=== PATIENT | female | born 1995 | race Two or more races ===

== ENCOUNTER 2018-03-21 21:29 | Inpatient (IN) | payer BC ==
[2018-03-22] MEDS ORDERED: Sodium Chloride 0.9% 2.5 ML Syringe FLUSH PRN (05:53)
[2018-03-22] MEDS ORDERED: Water For Irrigation,Sterile 1,000 ML Container IRR PRN (05:53)
[2018-03-22] MEDS ORDERED: Carboprost Tromethamine 250 MCG/1 ML Amp IM PRN (05:53)
[2018-03-22] MEDS ORDERED: Nalbuphine 10 MG/1 ML Vial IVPUSH PRN (05:53)
[2018-03-22] MEDS ORDERED: Lidocaine 1% 50 ML MDV INJECT PRN (05:53)
[2018-03-22] MEDS ORDERED: Tranexamic Acid 1,000 MG in Sodium Chloride 0.9% 100 ML IV PRN (05:53)
[2018-03-22] MEDS ORDERED: Methylergonovine 0.2 MG/1 ML Amp IM PRN (05:53)
[2018-03-22] MEDS ORDERED: Misoprostol 200 MCG Tab PO PRN (05:53)
[2018-03-22] MEDS ORDERED: Sodium Chloride 0.9% 10 ML Syringe FLUSH PRN (05:53)
[2018-03-22] MEDS ORDERED: Terbutaline 1 MG/ML SDV SUBCUT PRN (05:56)
[2018-03-22] MEDS ORDERED: Oxytocin/0.9 % Sodium Chloride 30 UNIT/500 ML BAG IV SCH ×2 (06:00)
[2018-03-22] MEDS ORDERED: Misoprostol 25 MCG (1/4 of 100 MCG) Tab VAG PRN (06:30)
[2018-03-22] MEDS: Misoprostol 25 MCG (1/4 of 100 MCG) Tab VAG PRN ×2 (08:22→12:45)
[2018-03-22] MEDS ORDERED: Misoprostol 25 MCG (1/4 of 100 MCG) Tab PO ONE ×2 (08:23→12:38)
[2018-03-22] MEDS: Labetalol 100 MG Tab PO SCH ×2 (08:58→20:55)
[2018-03-22] MEDS: Butorphanol 1 MG/ML SDV IVPUSH PRN ×2 (19:35→21:25)
[2018-03-22] MEDS: Lactated Ringers 1,000 ML IV SCH (20:23)
[2018-03-23] MEDS: Butorphanol 1 MG/ML SDV IVPUSH PRN (00:49)
--- NOTE | 2018-03-23 04:09 | PCM.PREANE ---
Preanesthetic Assessment - Anesthesia/Transfusion/Family Hx Anesthesia History: Prior Anesthesia Without Reaction Family History of Anesthesia Reaction: No Transfusion History: No Prior Transfusion(s) - Review of Systems General: No Symptoms Pulmonary: No Symptoms Cardiovascular: No Symptoms Gastrointestinal: No Symptoms Neurological: No Symptoms Other: Reports: None - Physical Assessment Pulse: 75 Blood Pressure: 128/66 Vital Signs: Last Vital Signs Temp Pulse 75 03/22/18 20:55 Resp BP 128/66 03/22/18 20:55 Pulse Ox Height: 5 ft 8 in Weight: 146.057 kg ASA Class: 3 Mental Status: Alert & Oriented x3 Airway Class: Mallampati = 2 Dentition: Reports: Normal Dentition Thyro-Mental Finger Breadths: 3 Mouth Opening Finger Breadths: 3 ROM/Head Extension: Full Lungs: Clear to Auscultation, Normal Respiratory Effort Cardiovascular: Regular Rate, Regular Rhythm - Lab Values: Laboratory Last Values WBC 10.57 K/uL (4.0-11.0) 03/22/18 07:20 RBC 4.08 M/uL (4.30-5.90) L 03/22/18 07:20 Hgb 11.7 g/dL (12.0-16.0) L 03/22/18 07:20 Hct 34.4 % (36.0-46.0) L 03/22/18 07:20 MCV 84.3 fL (80.0-98.0) 03/22/18 07:20 MCH 28.7 pg (27.0-32.0) 03/22/18 07:20 MCHC 34.0 g/dL (31.0-37.0) 03/22/18 07:20 RDW Std Deviation 43.0 fl (28.0-62.0) 03/22/18 07:20 RDW Coeff of Danielle 14 % (11.0-15.0) 03/22/18 07:20 Plt Count 209 K/uL (150-400) 03/22/18 07:20 MPV 10.10 fL (7.40-12.00) 03/22/18 07:20 Nucleated RBC % 0.0 /100WBC 03/22/18 07:20 Nucleated RBCs # 0 K/uL 03/22/18 07:20 Blood Type O POSITIVE 03/22/18 07:20 Antibody Screen NEGATIVE 03/22/18 07:20 - Allergies Allergies/Adverse Reactions: Allergies Allergy/AdvReac Type Severity Reaction Status Date / Time promethazine HCl Allergy seizure Verified 06/30/16 03:07 [From Phenergan] like - Acknowledgements Anesthesia Type Planned: General Anesthesia Pt an Appropriate Candidate for the Planned Anesthesia: Yes Alternatives and Risks of Anesthesia Discussed w Pt/Guardian: Yes Pt/Guardian Understands and Agrees with Anesthesia Plan: Yes PreAnesthesia Questionnaire HEENT History: Reports: Impaired Vision Cardiovascular History: Reports: Hypertension, Other (See Below) (Hx of SVT with cardiac ablation) Respiratory History: Reports: None Gastrointestinal History: Reports: GERD Genitourinary History: Reports: None 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: : 1 Para: 0 LMP (Approximate): Other OB/BYN History: chemical pregnancies Musculoskeletal History: Reports: None Neurological History: Reports: None Psychiatric History: Reports: Anxiety, Depression Endocrine/Metabolic History: Reports: Obesity/BMI 30+ (Morbid obesity) Hematologic History: Reports: None Immunologic History: Reports: None Oncologic (Cancer) History: Reports: None Dermatologic History: Reports: None - Infectious Disease History Infectious Disease History: Reports: None - Past Surgical History HEENT Surgical History: Reports: Adenoidectomy, Tonsillectomy Cardiovascular Surgical History: Reports: Cardiac Ablation - SUBSTANCE USE Smoking Status *Q: Never Smoker Recreational Drug Use History: No - HOME MEDS Home Medications: Home Meds Hydrochlorothiazide 1 tab PO DAILY 06/30/16 [History] Hyoscyamine [Hyomax-SL] 0.125 mg SL Q6H PRN #15 tab.sl 06/30/16 [Rx] Ondansetron [Zofran ODT] 4 mg PO Q6H PRN #12 tab.dis 06/30/16 [Rx] - CURRENT (IN HOUSE) MEDS Current Meds: Current Medications Butorphanol Tartrate (Stadol) 1 mg IVPUSH Q1H PRN PRN Reason: Pain Last Admin: 03/23/18 00:49 Dose: 1 mg Carboprost Tromethamine (Hemabate Ds) 250 mcg IM ASDIRECTED PRN PRN Reason: Post Hemorrhage Lactated Ringer's (Ringers, Lactated) 1,000 mls @ 150 mls/hr IV ASDIRECTED KING Last Admin: 03/22/18 20:23 Dose: 150 mls/hr Oxytocin/Sodium Chloride (Oxytocin 30 Unit/500 Ml-Ns) 30 unit in 500 mls @ 999 mls/hr IV TITRATE [facility] Tranexamic Acid 1,000 mg/ (Sodium Chloride) 110 mls @ 660 mls/hr IV ONETIME PRN PRN Reason: Bleeding Oxytocin/Sodium Chloride (Oxytocin 30 Unit/500 Ml-Ns) 30 unit in 500 mls @ 2 mls/hr IV TITRATE [facility]; Protocol Last Titration: 03/23/18 02:19 Dose: 30 munits/min, 30 mls/hr Labetalol HCl (Normodyne) 200 mg PO BID [facility] Last Admin: 03/22/18 20:55 Dose: 200 mg Lidocaine HCl (Xylocaine 1%) 50 ml INJECT ONETIME PRN PRN Reason: Laceration repair Methylergonovine Maleate (Methergine) 0.2 mg IM ASDIRECTED PRN PRN Reason: Post Hemorrhage Misoprostol (Cytotec) 200 mcg PO ONETIME PRN PRN Reason: Post Hemorrhage Misoprostol (Cytotec) 25 mcg VAG Q4H PRN PRN Reason: Cervical Ripening Misoprostol (Cytotec) 25 mcg VAG Q4H PRN PRN Reason: Cervical Ripening Last Admin: 03/22/18 12:45 Dose: 25 mcg Nalbuphine HCl (Nubain) 10 mg IVPUSH Q1H PRN PRN Reason: Pain (severe 7-10) Sodium Chloride (Saline Flush) 10 ml FLUSH ASDIRECTED PRN PRN Reason: Keep Vein Open Sodium Chloride (Saline Flush) 2.5 ml FLUSH ASDIRECTED PRN PRN Reason: Keep Vein Open Sterile Water (Sterile Water For Irrigation) 1,000 ml IRR ASDIRECTED PRN PRN Reason: delivery Terbutaline Sulfate (Brethine) 0.25 mg SUBCUT ASDIRECTED PRN PRN Reason: Tacysystole Discontinued Medications Misoprostol (Cytotec) 25 mcg PO ONETIME ONE Stop: 03/22/18 08:24 Last Admin: 03/22/18 08:29 Dose: 25 mcg Misoprostol (Cytotec) 25 mcg PO ONETIME ONE Stop: 03/22/18 12:39 Last Admin: 03/22/18 12:45 Dose: 25 mcg
[2018-03-23] MEDS: Lactated Ringers 1,000 ML IV SCH ×2 (04:22→06:16)
[2018-03-23] MEDS ORDERED: Bupivacaine 0.5% 10 ML SDV ONE (08:20)
[2018-03-23] MEDS ORDERED: Ondansetron 4 MG/2 ML SDV IVPUSH PRN (10:12)
[2018-03-23] MEDS: Labetalol 100 MG Tab PO SCH ×2 (10:16→20:39)
[2018-03-23] MEDS ORDERED: Misoprostol 200 MCG Tab PO PRN (10:41)
[2018-03-23] MEDS ORDERED: Sodium Chloride 0.9% 2.5 ML Syringe FLUSH PRN (10:41)
[2018-03-23] MEDS ORDERED: Tranexamic Acid 1,000 MG in Sodium Chloride 0.9% 100 ML IV PRN (10:41)
[2018-03-23] MEDS ORDERED: Carboprost Tromethamine 250 MCG/1 ML Amp IM PRN (10:41)
[2018-03-23] MEDS ORDERED: Lidocaine 1% 50 ML MDV INJECT PRN (10:41)
[2018-03-23] MEDS ORDERED: Water For Irrigation,Sterile 1,000 ML Container IRR PRN (10:41)
[2018-03-23] MEDS ORDERED: Sodium Chloride 0.9% 10 ML Syringe FLUSH PRN (10:41)
[2018-03-23] MEDS ORDERED: Nalbuphine 10 MG/1 ML Vial IVPUSH PRN (10:41)
[2018-03-23] MEDS ORDERED: Butorphanol 1 MG/ML SDV IVPUSH PRN (10:41)
[2018-03-23] MEDS ORDERED: Methylergonovine 0.2 MG/1 ML Amp IM PRN (10:41)
[2018-03-23] MEDS ORDERED: Lactated Ringers 1,000 ML IV SCH (10:45)
[2018-03-23] MEDS ORDERED: Oxytocin/0.9 % Sodium Chloride 30 UNIT/500 ML BAG IV SCH (10:45)
--- NOTE | 2018-03-23 13:42 | PCM.SN ---
- Free Text/Narrative Note: Pt epidural infusion refilled with 100 ml 0.125% bupivacaine with 200 mcg fentanyl added. Pt states is comfortable with epidural as programmed and is dilated to about 5 cm. Rate/bolus continued as prior.
[2018-03-23] MEDS ORDERED: Witch Hazel Medicated Pads 40/Jar TOP PRN (15:10)
[2018-03-23] MEDS ORDERED: Benzocaine/Menthol 20%-0.5% Spray 78 GM Cannister TOP PRN (15:10)
[2018-03-23] MEDS ORDERED: Ibuprofen 400 MG Tab PO PRN (15:10)
[2018-03-23] MEDS ORDERED: Bisacodyl 10 MG Supp RECTAL PRN (15:10)
[2018-03-23] MEDS ORDERED: Docusate Sodium 100 MG Cap PO PRN (15:10)
[2018-03-23] MEDS ORDERED: Acetaminophen 500 MG Tab PO PRN ×2 (15:10)
[2018-03-23] MEDS ORDERED: Lanolin 100% Cream 7 GM Tube TOP PRN (15:10)
[2018-03-23] MEDS ORDERED: oxyCODONE 5 MG Tab PO PRN (15:10)
--- NOTE | 2018-03-23 15:18 | PCM.DEL ---
L & D Note - General Info Date of Service: 03/23/18 - Delivery Note Labor: Induced by Oxytocin Cervical Ripening Method: Prostaglandin E2 Delivery Outcome: Livebirth Infant Delivery Method: Spontaneous Vaginal Delivery-Single Infant Delivery Mode: Spontaneous Presentation: Left Occiput Anterior (CONNOR) Nuchal Cord: None Prep: Other Anesthesia Type: Epidural Amniotic Fluid Description: Clear Episiotomy Type: None Laceration: 1st Degree, Labial Suture type: Vicryl Suture size: 3-0 Placenta: Intact, Spontaneous Cord: 3 Vessels Estimated Blood Loss: 100 Resuscitation Needed: Yes : Suctioned, Stimulated Score 1 min: 1 Score 5 min: 4 Score 10 min: 8 Induction Criteria - Cunningham Score Cunningham Score Dilation: Closed Cunningham Score Effacement: 0-30% Cunningham Score Infant's Station: -3 Cunningham Score Consistency: Firm Cunningham Score Cervix Position: Posterior Cunningham Score Total: 0 Cunningham Score Presenting Part: Reports: Cephalic - Induction Gestational Age >/= 39 wks: Yes Estimated Pelvis: Reports: Adequate Reassuring Monitoring Strip: Yes Absence of Tachy Systole: Yes - General Info Date of Service: 03/23/18 - Patient Data Vitals - Most Recent: Last Vital Signs Temp Pulse 113 H 03/23/18 10:16 Resp BP 142/88 H 03/23/18 10:16 Pulse Ox Weight - Most Recent: 322 lb Med Orders - Current: Current Medications Acetaminophen (Tylenol Extra Strength) 500 mg PO Q4H PRN PRN Reason: Pain Acetaminophen (Tylenol Extra Strength) 1,000 mg PO Q4H PRN PRN Reason: Pain Benzocaine/Menthol (Dermoplast Pain Relief 20%-0.5% [place]) 78 gm TOP ASDIRECTED PRN PRN Reason: Perineal Comfort Measure Bisacodyl (Dulcolax) 10 mg RECTAL ONETIME PRN PRN Reason: Constipation Docusate Sodium (Colace) 100 mg PO BID PRN PRN Reason: Constipation Emollient Ointment (Lansinoh Hpa) 0 gm TOP ASDIRECTED PRN PRN Reason: Sore Nipples Ibuprofen (Motrin) 400 mg PO Q4H PRN PRN Reason: Pain Ibuprofen (Motrin) 800 mg PO Q6H PRN PRN Reason: Pain Labetalol HCl (Normodyne) 200 mg PO BID [facility] Last Admin: 03/23/18 10:16 Dose: 200 mg Oxycodone HCl (Oxycodone) 5 mg PO Q2H PRN PRN Reason: Pain Witch Hiral (Tucks) 1 pad TOP ASDIRECTED PRN PRN Reason: comfort care Discontinued Medications Bupivacaine HCl (Sensorcaine-Mpf 0.5%) Confirm Administered Dose 10 ml .ROUTE .STK-MED ONE Stop: 03/23/18 08:21 Butorphanol Tartrate (Stadol) 1 mg IVPUSH Q1H PRN PRN Reason: Pain Last Admin: 03/23/18 00:49 Dose: 1 mg Carboprost Tromethamine (Hemabate Ds) 250 mcg IM ASDIRECTED PRN PRN Reason: Post Hemorrhage Lactated Ringer's (Ringers, Lactated) 1,000 mls @ 150 mls/hr IV ASDIRECTED KING Last Admin: 03/23/18 06:16 Dose: 150 mls/hr Oxytocin/Sodium Chloride (Oxytocin 30 Unit/500 Ml-Ns) 30 unit in 500 mls @ 999 mls/hr IV TITRATE [facility] Tranexamic Acid 1,000 mg/ (Sodium Chloride) 110 mls @ 660 mls/hr IV ONETIME PRN PRN Reason: Bleeding Oxytocin/Sodium Chloride (Oxytocin 30 Unit/500 Ml-Ns) 30 unit in 500 mls @ 2 mls/hr IV TITRATE [facility]; Protocol Last Titration: 03/23/18 09:03 Dose: 30 munits/min, 30 mls/hr Fentanyl/Bupivacaine HCl ([id number]-Ckfix-Nr 2 Mcg/Ml-0.125%) Confirm Administered Dose 100 mls @ as directed EP .STK-MED ONE Stop: 03/23/18 04:13 Fentanyl/Bupivacaine HCl (Jjlbncqf-Ptwhk-Xt 2 Mcg/Ml-0.125%) Confirm Administered Dose 100 mls @ as directed EP .STK-MED ONE Stop: 03/23/18 11:41 Lidocaine HCl (Xylocaine 1%) 50 ml INJECT ONETIME PRN PRN Reason: Laceration repair Methylergonovine Maleate (Methergine) 0.2 mg IM ASDIRECTED PRN PRN Reason: Post Hemorrhage Misoprostol (Cytotec) 200 mcg PO ONETIME PRN PRN Reason: Post Hemorrhage Misoprostol (Cytotec) 25 mcg VAG Q4H PRN PRN Reason: Cervical Ripening Misoprostol (Cytotec) 25 mcg VAG Q4H PRN PRN Reason: Cervical Ripening Last Admin: 03/22/18 12:45 Dose: 25 mcg Misoprostol (Cytotec) 25 mcg PO ONETIME ONE Stop: 03/22/18 08:24 Last Admin: 03/22/18 08:29 Dose: 25 mcg Misoprostol (Cytotec) 25 mcg PO ONETIME ONE Stop: 03/22/18 12:39 Last Admin: 03/22/18 12:45 Dose: 25 mcg Nalbuphine HCl (Nubain) 10 mg IVPUSH Q1H PRN PRN Reason: Pain (severe 7-10) Sodium Chloride (Saline Flush) 10 ml FLUSH ASDIRECTED PRN PRN Reason: Keep Vein Open Sodium Chloride (Saline Flush) 2.5 ml FLUSH ASDIRECTED PRN PRN Reason: Keep Vein Open Sterile Water (Sterile Water For Irrigation) 1,000 ml IRR ASDIRECTED PRN PRN Reason: delivery Terbutaline Sulfate (Brethine) 0.25 mg SUBCUT ASDIRECTED PRN PRN Reason: Tacysystole - Problem List & Annotations (1) Vaginal delivery SNOMED Code(s): 968536639 Code(s): O80 - ENCOUNTER FOR FULL-TERM UNCOMPLICATED DELIVERY Status: Acute Current Visit: Yes - Problem List Review Problem List Initiated/Reviewed/Updated: Yes - My Orders Last 24 Hours: My Active Orders 03/23/18 10:41 Heart Tones [RC] CONTINUOUS Non Stress Test [RC] PER UNIT ROUTINE May Shower [RC] ASDIRECTED Notify Provider [RC] PRN Up ad Jeanette [RC] ASDIRECTED Vaginal Exam [RC] PRN Vital Signs [RC] PER UNIT ROUTINE 03/23/18 14:41 BLOOD GAS ARTERIAL UMBILICAL [BG] Routine BLOOD GAS VENOUS UMBILICAL [BG] Routine 03/23/18 15:10 Patient Status [ADT] Routine May Shower [RC] ASDIRECTED Up ad Jeanette [RC] ASDIRECTED Vital Signs [RC] PER UNIT ROUTINE Acetaminophen [Tylenol Extra Strength] 1,000 mg PO Q4H PRN Acetaminophen [Tylenol Extra Strength] 500 mg PO Q4H PRN Benzocaine/Menthol [Dermoplast Pain Relief 20%-0.5% [place]] 78 gm TOP ASDIRECTED PRN Bisacodyl [Dulcolax] 10 mg RECTAL ONETIME PRN Docusate Sodium [Colace] 100 mg PO BID PRN Ibuprofen [Motrin] 400 mg PO Q4H PRN Ibuprofen [Motrin] 800 mg PO Q6H PRN Lanolin [Lansinoh HPA] See Dose Instructions TOP ASDIRECTED PRN Witch Hiral [Tucks] 1 pad TOP ASDIRECTED PRN oxyCODONE 5 mg PO Q2H PRN Assess Lochia [WOMSER] Per Unit Routine Assess Uterine Involution [WOMSER] Per Unit Routine Breast Pump [WOMSER] Per Unit Routine Peripheral IV Discontinue [OM.PC] Routine Resuscitation Status Routine 03/23/18 15:11 Perineal Care [OM.PC] Per Unit Routine 03/23/18 Dinner Regular Diet [DIET] 03/24/18 05:11 HEMOGLOBIN/HEMATOCRIT,HH [HEME] Timed - Assessment Assessment:: Primp at 39.3 weeks s/p vaginal delivery following IOL for CHTN
[2018-03-23] MEDS: Ibuprofen 800 MG Tab PO PRN (17:07)
--- NOTE | 2018-03-24 01:06 | OR ---
SURGEON: Anuradha Sweeney MD DATE OF PROCEDURE: 03/23/2018 PREOPERATIVE DIAGNOSES: 1. Intrauterine at 39 weeks and 3 days' gestation. 2. Chronic hypertension. 3. Polyhydramnios. POSTOPERATIVE DIAGNOSES: 1. Intrauterine at 39 weeks and 3 days' gestation. 2. Chronic hypertension. 3. Polyhydramnios. 4. Delivered. PROCEDURE: Induction of labor, spontaneous vaginal delivery, and repair of perineal laceration. ANESTHESIA: Epidural. ESTIMATED BLOOD LOSS: 100 mL. COMPLICATIONS: None. DISPOSITION: Mother stable in Labor and Delivery Room. Baby stable to new born nursery. FINDINGS: Male infant, weight 4100 g, scores 1 and 4 at one and five minutes respectively and 8 at ten minutes. Grossly normal placenta with 3-vessel cord. First-degree laceration and labial lacerations. HISTORY AND DESCRIPTION OF DELIVERY: Tereza is a primigravida, who was admitted overnight on the 21 of March for induction of labor secondary to chronic hypertension which had been controlled on labetalol 200 mg b.i.d. and polyhydramnios with negative evaluations and reassuring surveillance. GBS status was negative. The patient's induction actually began around 8:00 a.m. on the 22 of March, and she received Cytotec 25 mcg both vaginal and orally which was repeated 4 hours later. After the second round of Cytotec, she started thomas every 1 to 3 minutes, she was uncomfortable and received Stadol at that stage. On vaginal examination, she 1, 60% effaced, station -3, a [employer] intracervical balloon was placed and Pitocin was commenced. The balloon was removed approximately 12 hours later, she was 5 cm, 90% effaced. Artificial rupture of membranes was performed and an IUPC was inserted. And she received and epidural Pitocin was titrated up to obtain adequate MUvs. She subsequently became fully dilated and commenced pushing. The heart tracing remained category 1 during the first stage and category 2 in the second stage. Blood pressures were normotensive. With pushing, she brought the head down to +4 station, and was set up for delivery, modified low dorsal lithotomy position. Pushing for approximately about 2 hours 30 minutes, she had a spontaneous vaginal delivery of a male in direct occipital posterior position, no nuchal cord with clear amniotic fluid at delivery. Anterior and posterior shoulders and the rest of the baby were delivered without difficulty. Terminal meconium was noted at delivery. The baby was floppy at delivery. The cord was quickly double clamped and cut and the was handed over to the nursery nurse, he was taken to the warmer, where further evaluation and resuscitation ensued. With delivery of the , oxytocin infusion was converted titration for active management of the third stage of labor. Cord blood and gas samples were obtained. Placenta was delivered by controlled cord traction, appeared to be complete and intact. Examination of the perineum revealed vaginal and labial lacerations which were repaired with 3-0 Polysorb. The lacerations were hemostatic post repair. Uterine massage was performed, uterus was found to be well contracted below the umbilicus. The patient tolerated the procedure well. Sponge, instrument, and needle counts were normal. The baby transitioned well and was taken to the nursery for post resuscitation evaluation and care. ADUMVIV / MODL /[id number] MTDD
[2018-03-24] MEDS: Ibuprofen 800 MG Tab PO PRN ×2 (04:10→14:28)
--- NOTE | 2018-03-24 08:19 | PCM.PNPP ---
<Renetta Ernandez - Last Filed: 03/24/18 08:17> - General Info Date of Service: 03/24/18 Functional Status: Reports: Pain Controlled, Tolerating Diet, Ambulating, Urinating - Review of Systems General: Denies: Fever, Weakness, Fatigue Pulmonary: Denies: Shortness of Breath, Pleuritic Chest Pain, Cough Cardiovascular: Denies: Chest Pain, Palpitations, Dyspnea on Exertion Gastrointestinal: Denies: Abdominal Pain Genitourinary: Denies: Dysuria - General Info Date of Service: 03/24/18 - Patient Data Vital Signs - Most Recent: Last Vital Signs Temp 36.4 C 03/24/18 06:04 Pulse 77 03/24/18 06:04 Resp 17 03/24/18 06:04 BP 115/59 L 03/24/18 06:04 Pulse Ox 97 03/24/18 06:04 Weight - Most Recent: 146.057 kg Lab Results - Last 24 Hours: Laboratory Results - last 24 hr 03/23/18 03/24/18 Range/Units 14:39 05:00 Hgb 11.1 L (12.0-16.0) g/dL Hct 32.2 L (36.0-46.0) % Cord ABG pH 7.085 L (7.18-7.38) Cord ABG Base Excess -14 L (-10--2) Cord VBG pH 7.247 L (7.25-7.45) Cord VBG Base Excess -10 (-10--2) Med Orders - Current: Current Medications Acetaminophen (Tylenol Extra Strength) 500 mg PO Q4H PRN PRN Reason: Pain Acetaminophen (Tylenol Extra Strength) 1,000 mg PO Q4H PRN PRN Reason: Pain Benzocaine/Menthol (Dermoplast Pain Relief 20%-0.5% [place]) 78 gm TOP ASDIRECTED PRN PRN Reason: Perineal Comfort Measure Last Admin: 03/23/18 17:07 Dose: 1 can Bisacodyl (Dulcolax) 10 mg RECTAL ONETIME PRN PRN Reason: Constipation Docusate Sodium (Colace) 100 mg PO BID PRN PRN Reason: Constipation Last Admin: 03/23/18 20:34 Dose: 100 mg Emollient Ointment (Lansinoh Hpa) 0 gm TOP ASDIRECTED PRN PRN Reason: Sore Nipples Ibuprofen (Motrin) 400 mg PO Q4H PRN PRN Reason: Pain Ibuprofen (Motrin) 800 mg PO Q6H PRN PRN Reason: Pain Last Admin: 03/24/18 04:10 Dose: 800 mg Labetalol HCl (Normodyne) 200 mg PO BID KING Last Admin: 03/23/18 20:39 Dose: 200 mg Oxycodone HCl (Oxycodone) 5 mg PO Q2H PRN PRN Reason: Pain Last Admin: 03/23/18 20:34 Dose: 5 mg Witch Hiral (Tucks) 1 pad TOP ASDIRECTED PRN PRN Reason: comfort care Last Admin: 03/23/18 17:07 Dose: 1 tub Discontinued Medications Bupivacaine HCl (Sensorcaine-Mpf 0.5%) Confirm Administered Dose 10 ml .ROUTE .STK-MED ONE Stop: 03/23/18 08:21 Butorphanol Tartrate (Stadol) 1 mg IVPUSH Q1H PRN PRN Reason: Pain Last Admin: 03/23/18 00:49 Dose: 1 mg Carboprost Tromethamine (Hemabate Ds) 250 mcg IM ASDIRECTED PRN PRN Reason: Post Hemorrhage Lactated Ringer's (Ringers, Lactated) 1,000 mls @ 150 mls/hr IV ASDIRECTED KING Last Admin: 03/23/18 06:16 Dose: 150 mls/hr Oxytocin/Sodium Chloride (Oxytocin 30 Unit/500 Ml-Ns) 30 unit in 500 mls @ 999 mls/hr IV TITRATE KING Tranexamic Acid 1,000 mg/ (Sodium Chloride) 110 mls @ 660 mls/hr IV ONETIME PRN PRN Reason: Bleeding Oxytocin/Sodium Chloride (Oxytocin 30 Unit/500 Ml-Ns) 30 unit in 500 mls @ 2 mls/hr IV TITRATE KING; Protocol Last Titration: 03/23/18 09:03 Dose: 30 munits/min, 30 mls/hr Fentanyl/Bupivacaine HCl (Qgqvnavq-Nhohy-Av 2 Mcg/Ml-0.125%) Confirm Administered Dose 100 mls @ as directed EP .STK-MED ONE Stop: 03/23/18 04:13 Fentanyl/Bupivacaine HCl (Ghhumztw-Pdcaw-Kq 2 Mcg/Ml-0.125%) Confirm Administered Dose 100 mls @ as directed EP .STK-MED ONE Stop: 03/23/18 11:41 Lidocaine HCl (Xylocaine 1%) 50 ml INJECT ONETIME PRN PRN Reason: Laceration repair Methylergonovine Maleate (Methergine) 0.2 mg IM ASDIRECTED PRN PRN Reason: Post Hemorrhage Misoprostol (Cytotec) 200 mcg PO ONETIME PRN PRN Reason: Post Hemorrhage Misoprostol (Cytotec) 25 mcg VAG Q4H PRN PRN Reason: Cervical Ripening Misoprostol (Cytotec) 25 mcg VAG Q4H PRN PRN Reason: Cervical Ripening Last Admin: 03/22/18 12:45 Dose: 25 mcg Misoprostol (Cytotec) 25 mcg PO ONETIME ONE Stop: 03/22/18 08:24 Last Admin: 03/22/18 08:29 Dose: 25 mcg Misoprostol (Cytotec) 25 mcg PO ONETIME ONE Stop: 03/22/18 12:39 Last Admin: 03/22/18 12:45 Dose: 25 mcg Nalbuphine HCl (Nubain) 10 mg IVPUSH Q1H PRN PRN Reason: Pain (severe 7-10) Sodium Chloride (Saline Flush) 10 ml FLUSH ASDIRECTED PRN PRN Reason: Keep Vein Open Sodium Chloride (Saline Flush) 2.5 ml FLUSH ASDIRECTED PRN PRN Reason: Keep Vein Open Sterile Water (Sterile Water For Irrigation) 1,000 ml IRR ASDIRECTED PRN PRN Reason: delivery Terbutaline Sulfate (Brethine) 0.25 mg SUBCUT ASDIRECTED PRN PRN Reason: Tacysystole - Interaction Disposition, : in Room with Family Interaction: Holding Infant Feeding: Breastfed Infant; Nursed Well Support Person: Significant Other - Recovery Exam Fundal Tone: Firm Fundal Level: At Umbilicus Fundal Placement: Midline Lochia Amount: Scant Lochia Color: Rubra/Red Perineum Description: Other (see below) Other Perinuem Description: rt laceration on clitoris Episiotomy/Laceration: Approximated Bladder Status: Nonpalpable, Voiding Urinary Elimination: Voided - Exam General: Alert, Oriented Neck: Supple Lungs: Clear to Auscultation, Normal Respiratory Effort Cardiovascular: Regular Rate, Regular Rhythm GI/Abdominal Exam: Normal Bowel Sounds, Soft, Non-Tender Extremities: Normal Inspection, Normal Capillary Refill, Pedal Edema (trace) Skin: Warm, Dry, Intact - Problem List & Annotations (1) Vaginal delivery SNOMED Code(s): 623375903 Code(s): O80 - ENCOUNTER FOR FULL-TERM UNCOMPLICATED DELIVERY Status: Acute Current Visit: Yes - Problem List Review Problem List Initiated/Reviewed/Updated: Yes - Assessment Assessment:: PPD #1 s/p . Minimal pain and lochia. Breast feeding well. Encouraged ambulation, shower, and rest today. - Plan Plan:: Continue routine post cares. Anticipate discharge home tomorrow. <Jair Dial - Last Filed: 03/24/18 19:09> - Patient Data Vital Signs - Most Recent: Last Vital Signs Temp 36.9 C 03/24/18 16:00 Pulse 80 03/24/18 16:00 Resp 18 03/24/18 16:00 BP 103/71 03/24/18 16:00 Pulse Ox 94 L 03/24/18 16:00 Lab Results - Last 24 Hours: Laboratory Results - last 24 hr 03/24/18 Range/Units 05:00 Hgb 11.1 L (12.0-16.0) g/dL Hct 32.2 L (36.0-46.0) % Med Orders - Current: Current Medications Acetaminophen (Tylenol Extra Strength) 500 mg PO Q4H PRN PRN Reason: Pain Acetaminophen (Tylenol Extra Strength) 1,000 mg PO Q4H PRN PRN Reason: Pain Last Admin: 03/24/18 09:02 Dose: 1,000 mg Benzocaine/Menthol (Dermoplast Pain Relief 20%-0.5% [place]) 78 gm TOP ASDIRECTED PRN PRN Reason: Perineal Comfort Measure Last Admin: 03/23/18 17:07 Dose: 1 can Bisacodyl (Dulcolax) 10 mg RECTAL ONETIME PRN PRN Reason: Constipation Docusate Sodium (Colace) 100 mg PO BID PRN PRN Reason: Constipation Last Admin: 03/23/18 20:34 Dose: 100 mg Emollient Ointment (Lansinoh Hpa) 0 gm TOP ASDIRECTED PRN PRN Reason: Sore Nipples Ibuprofen (Motrin) 400 mg PO Q4H PRN PRN Reason: Pain Ibuprofen (Motrin) 800 mg PO Q6H PRN PRN Reason: Pain Last Admin: 03/24/18 14:28 Dose: 800 mg Labetalol HCl (Normodyne) 200 mg PO BID KING Last Admin: 03/24/18 09:02 Dose: 200 mg Oxycodone HCl (Oxycodone) 5 mg PO Q2H PRN PRN Reason: Pain Last Admin: 03/23/18 20:34 Dose: 5 mg Witch Hiral (Tucks) 1 pad TOP ASDIRECTED PRN PRN Reason: comfort care Last Admin: 03/23/18 17:07 Dose: 1 tub Discontinued Medications Bupivacaine HCl (Sensorcaine-Mpf 0.5%) Confirm Administered Dose 10 ml .ROUTE .STK-MED ONE Stop: 03/23/18 08:21 Butorphanol Tartrate (Stadol) 1 mg IVPUSH Q1H PRN PRN Reason: Pain Last Admin: 03/23/18 00:49 Dose: 1 mg Carboprost Tromethamine (Hemabate Ds) 250 mcg IM ASDIRECTED PRN PRN Reason: Post Hemorrhage Lactated Ringer's (Ringers, Lactated) 1,000 mls @ 150 mls/hr IV ASDIRECTED KING Last Admin: 03/23/18 06:16 Dose: 150 mls/hr Oxytocin/Sodium Chloride (Oxytocin 30 Unit/500 Ml-Ns) 30 unit in 500 mls @ 999 mls/hr IV TITRATE KING Tranexamic Acid 1,000 mg/ (Sodium Chloride) 110 mls @ 660 mls/hr IV ONETIME PRN PRN Reason: Bleeding Oxytocin/Sodium Chloride (Oxytocin 30 Unit/500 Ml-Ns) 30 unit in 500 mls @ 2 mls/hr IV TITRATE KING; Protocol Last Titration: 03/23/18 09:03 Dose: 30 munits/min, 30 mls/hr Fentanyl/Bupivacaine HCl (Ljrzgswk-Rdpxx-Lw 2 Mcg/Ml-0.125%) Confirm Administered Dose 100 mls @ as directed EP .STK-MED ONE Stop: 03/23/18 04:13 Fentanyl/Bupivacaine HCl (Hkfecsbd-Qqvuw-Jm 2 Mcg/Ml-0.125%) Confirm Administered Dose 100 mls @ as directed EP .STK-MED ONE Stop: 03/23/18 11:41 Lidocaine HCl (Xylocaine 1%) 50 ml INJECT ONETIME PRN PRN Reason: Laceration repair Methylergonovine Maleate (Methergine) 0.2 mg IM ASDIRECTED PRN PRN Reason: Post Hemorrhage Misoprostol (Cytotec) 200 mcg PO ONETIME PRN PRN Reason: Post Hemorrhage Misoprostol (Cytotec) 25 mcg VAG Q4H PRN PRN Reason: Cervical Ripening Misoprostol (Cytotec) 25 mcg VAG Q4H PRN PRN Reason: Cervical Ripening Last Admin: 03/22/18 12:45 Dose: 25 mcg Misoprostol (Cytotec) 25 mcg PO ONETIME ONE Stop: 03/22/18 08:24 Last Admin: 03/22/18 08:29 Dose: 25 mcg Misoprostol (Cytotec) 25 mcg PO ONETIME ONE Stop: 03/22/18 12:39 Last Admin: 03/22/18 12:45 Dose: 25 mcg Nalbuphine HCl (Nubain) 10 mg IVPUSH Q1H PRN PRN Reason: Pain (severe 7-10) Sodium Chloride (Saline Flush) 10 ml FLUSH ASDIRECTED PRN PRN Reason: Keep Vein Open Sodium Chloride (Saline Flush) 2.5 ml FLUSH ASDIRECTED PRN PRN Reason: Keep Vein Open Sterile Water (Sterile Water For Irrigation) 1,000 ml IRR ASDIRECTED PRN PRN Reason: delivery Terbutaline Sulfate (Brethine) 0.25 mg SUBCUT ASDIRECTED PRN PRN Reason: Tacysystole - Assessment Assessment:: PPD 1 s/p ,BP well controlled on labetalol 200mg bid , says she has some dizziness after labetalol - Plan Plan:: Discharge home today, will decrease Labetalol to 100mg bid Follow up in clinic on Mar 31 at 11am Preclampsia precautions given
[2018-03-24] MEDS: Labetalol 100 MG Tab PO SCH (09:02)
--- NOTE | 2018-03-24 09:21 | PCM48HPAN ---
Post Anesthesia Note - EVALUATION WITHIN 48HRS OF ANESTHETIC Vital Signs in Normal Range: Yes Patient Participated in Evaluation: Yes Respiratory Function Stable: Yes Airway Patent: Yes Cardiovascular Function Stable: Yes Hydration Status Stable: Yes Pain Control Satisfactory: Yes Nausea and Vomiting Control Satisfactory: Yes Mental Status Recovered: Yes Pulse Rate: 79 Resp Rate: 18 Blood Pressure: 102/61 - COMMENTS/OBSERVATIONS Free Text/Narrative:: Denies any complaints
[2018-03-24 20:09] VITALS: BP 92/50
== END 2018-03-24 20:30 | disposition home or self-care (01) | DRG 560 ==
LOC: MW.OBCHECK 21:29 → MW.OB 21:29 → MW.OBCHECK 03-22 05:53 → MW.OB 03-22 05:53 → OBSVTOIN 03-23 13:49 → INTOOBSV 03-23 13:49 → OBSVTOIN 03-23 14:39 → MW.OB 03-23 17:49
PROVIDERS: ADMIT Obstetrics & Gynecology; ATTEND Obstetrics & Gynecology
PROC: 10E0XZZ Delivery of Products of Conception, External Approach (ICD-10-PCS; principal; 2018-03-23)
PROC: 3E0P7VZ Introduction of Hormone into Female Reproductive, Via Natural or Artificial Opening (ICD-10-PCS; 2018-03-23)
PROC: 3E033VJ Introduction of Other Hormone into Peripheral Vein, Percutaneous Approach (ICD-10-PCS; 2018-03-23)
PROC: 0U7C7ZZ Dilation of Cervix, Via Natural or Artificial Opening (ICD-10-PCS; 2018-03-23)
PROC: 0HQ9XZZ Repair Perineum Skin, External Approach (ICD-10-PCS; 2018-03-23)
PROC: 00HU33Z Insertion of Infusion Device into Spinal Canal, Percutaneous Approach (ICD-10-PCS; 2018-03-23)
PROC: 10H07YZ Insertion of Other Device into Products of Conception, Via Natural or Artificial Opening (ICD-10-PCS; 2018-03-23)
PROC: 10907ZC Drainage of Amniotic Fluid, Therapeutic from Products of Conception, Via Natural or Artificial Opening (ICD-10-PCS; 2018-03-23)
DX: O10.92 Unspecified pre-existing hypertension complicating childbirth (principal); O40.3XX0 Polyhydramnios, third trimester, not applicable or unspecified; O77.0 Labor and delivery complicated by meconium in amniotic fluid; Z3A.39 39 weeks gestation of pregnancy; Z37.0 Single live birth
CPT/HCPCS: 36415; 59025; 59409; 82803; 85014; 85018; 85027; 86850; 86900; 86901; A9270-GY; J0595; J2590; J3490; J7120

== ENCOUNTER 2020-08-30 17:32 | Emergency (ER) | payer BC ==
--- NOTE | 2020-08-30 17:57 | EDM.PDOC ---
ED HPI GENERAL MEDICAL PROBLEM - General Chief Complaint: Abdominal Pain Stated Complaint: LT SIDE PAIN Time Seen by Provider: 08/30/20 17:34 Source of Information: Reports: Patient History Limitations: Reports: No Limitations - History of Present Illness INITIAL COMMENTS - FREE TEXT/NARRATIVE: HISTORY AND PHYSICAL: History of present illness: Patient is a 25-year-old female who presents to the emergency room with complaints of left lower abdominal pain over the past week. She states she recently found out she was , confirmed with Mariela Bui at [facility]. Last menstrual period was July 16, 2020 -estimated 6 weeks. Patient denies any fever, chills, headache, change in vision, syncope or near syncope. Denies any chest pain, back pain, shortness of breath or cough. Denies any nausea, vomiting, diarrhea, constipation or dysuria. She denies any vaginal bleeding or discharge. Has not noted any blood in urine or stool. Patient has been eating and drinking appropriately. Review of systems: As per history of present illness and below otherwise all systems reviewed and negative. Past medical history: As per history of present illness and as reviewed below otherwise noncontributory. Surgical history: As per history of present illness and as reviewed below otherwise noncontributory. Social history: See social history for further information Family history: As per history of present illness and as reviewed below otherwise noncontributory. Physical exam: General: Well developed and well nourished. Alert and orientated x 3. Nontoxic in appearance and in no acute distress. Vital signs are stable and have been reviewed by me. Nursing notes were reviewed. HEENT: Atraumatic, normocephalic, pupils equal and reactive bilaterally, negative for conjunctival pallor or scleral icterus, mucous membranes moist, TMs normal bilaterally, throat clear, neck supple, nontender, trachea midline. No drooling or trismus noted. No meningeal signs. No hot potato voice noted. Lungs: Clear to auscultation bilaterally. No wheezes, rales, or rhonchi. Chest nontender. Normal work of breathing, no accessory muscles used. Heart: S1S2, regular rate and rhythm without overt murmur, gallops, or rubs. No JVD. No peripheral edema Abdomen: Soft, nondistended, nontender. Normoactive bowel sounds. Negative for masses or costovertebral tenderness. Skin: Intact, warm, dry. No lesions or rashes noted. Hematologic: No petechiae or purpra. Mucosa appropriate color and normal nail bed color and refill. Extremities: Atraumatic, moves all extremities per self without difficulty or deficits, negative for cords or calf pain. Neurovascular unremarkable. Neuro: Awake, alert, oriented. Cranial nerves II through XII unremarkable. Cerebellum unremarkable. Motor and sensory unremarkable throughout. Exam nonfocal. Psychiatric: Mood and affect are appropriate. Normal thought process. Answering questions appropriately. Notes: *This patient was seen and evaluated during the 2019 SARS-CoV-2 novel coronavirus pandemic period. Community viral transmission is ongoing at time of this encounter and the emergency department is operating under pandemic response procedures. Ultrasound shows a single intrauterine . Measurements are consistent with dates. Trace free fluid adjacent to the left ovary, possibly due to recently ruptured cyst. Patient does have a urinary tract infection, otherwise lab work is unremarkable. We have given her her first dose of antibiotic here and the remaining prescription was sent to her pharmacy. I have talked with the patient about today's findings, in addition to providing specific details for plan of care. Reassessment at the time of disposition demonstrates that the patient is in no acute distress. The patient is stable for discharge, counseling was provided and we discussed in great detail signs and symptoms that would prompt them to return to the Emergency Department. Medication, follow up and supportive care measures were reviewed and discussed. Voices understanding and is agreeable to plan of care. Denies any further questions or concerns at this time. Diagnostics: CBC, CMP, UA, HCGU, Quant HCG, OB ultrasound Therapeutics: Augmentin Prescription: Augmentin Impression: UTI in Plan: 1. Please start and/or continue to take your vitamin with folic acid once daily. 2. Pelvic rest until cleared by your OBGYN (no tampons, sex, etc...) 3. Tylenol as needed for pain management. 4. Follow up with your PROCESS DEVELOPMENT ASSOCIATE in the next 1-2 days. Return to the ED as needed and as discussed. Definitive disposition and diagnosis as appropriate pending reevaluation and review of above. Left Lower Abdomen Pain Score (Numeric/FACES): 6 - Related Data Allergies Allergy/AdvReac Type Severity Reaction Status Date / Time promethazine HCl Allergy seizure Verified 08/30/20 17:50 [From Phenergan] like Home Meds: Home Meds Amoxicillin/Potassium Clav [Amox-Clav 500-125 mg Tablet] 1 each PO BID 7 Days #14 tablet 08/30/20 [Rx] Pnv No.103/Folic/Om3s/Fish Oil [ Gummies] 1 each PO 08/30/20 [History] Past Medical History HEENT History: Reports: Impaired Vision Cardiovascular History: Reports: Hypertension, Other (See Below) (Hx of SVT with cardiac ablation) Respiratory History: Reports: None Gastrointestinal History: Reports: GERD Genitourinary History: Reports: None PROCESS DEVELOPMENT ASSOCIATE History: Reports: Other PROCESS DEVELOPMENT ASSOCIATE History: chemical pregnancies Musculoskeletal History: Reports: None Neurological History: Reports: None Psychiatric History: Reports: Anxiety, Depression Endocrine/Metabolic History: Reports: Obesity/BMI 30+ (Morbid obesity) Hematologic History: Reports: None Immunologic History: Reports: None Oncologic (Cancer) History: Reports: None Dermatologic History: Reports: None - Infectious Disease History Infectious Disease History: Reports: None - Past Surgical History HEENT Surgical History: Reports: Adenoidectomy, Tonsillectomy Cardiovascular Surgical History: Reports: Cardiac Ablation Social & Family History - Family History Family Medical History: No Pertinent Family History HEENT: Reports: None Cardiac: Reports: Afib, Hypertension, Other (See Below) Other Cardiac Family History: heart disease OBGYN: Reports: Dysfunctional uterine bleeding, Neurological: Reports: CVA Endocrine/Metabolic: Reports: Diabetes, type II - Caffeine Use Caffeine Use: Reports: Coffee ED ROS GENERAL - Review of Systems Review Of Systems: Comprehensive ROS is negative, except as noted in HPI. ED EXAM - Physical Exam Exam: See Below (See dictation) Course - Vital Signs Last Recorded V/S: Last Vital Signs Temp 98.5 F 08/30/20 20:04 Pulse 84 08/30/20 20:04 Resp 18 08/30/20 20:04 BP 129/79 08/30/20 20:04 Pulse Ox 98 08/30/20 20:04 - Orders/Labs/Meds Orders: Active Orders 24 hr Category Date Time Status CULTURE URINE [RM] Stat Lab 08/30/20 17:25 Received Labs: Laboratory Tests 08/30/20 08/30/20 08/30/20 Range/Units 17:25 17:25 18:11 WBC 9.62 (4.0-11.0) K/uL RBC 4.30 (4.30-5.90) M/uL Hgb 12.1 (12.0-16.0) g/dL Hct 36.1 (36.0-46.0) % MCV 84.0 (80.0-98.0) fL MCH 28.1 (27.0-32.0) pg MCHC 33.5 (31.0-37.0) g/dL RDW Std Deviation 45.1 (28.0-62.0) fl RDW Coeff of Danielle 15 (11.0-15.0) % Plt Count 333 (150-400) K/uL MPV 9.40 (7.40-12.00) fL Neut % (Auto) 62.5 (48.0-80.0) % Lymph % (Auto) 30.5 (16.0-40.0) % [place] % (Auto) 4.9 (0.0-15.0) % Eos % (Auto) 1.8 (0.0-7.0) % Baso % (Auto) 0.3 (0.0-1.5) % Neut # (Auto) 6.0 H (1.4-5.7) K/uL Lymph # (Auto) 2.9 H (0.6-2.4) K/uL [place] # (Auto) 0.5 (0.0-0.8) K/uL Eos # (Auto) 0.2 (0.0-0.7) K/uL Baso # (Auto) 0.0 (0.0-0.1) K/uL Nucleated RBC % 0.0 /100WBC Nucleated RBCs # 0 K/uL Sodium (136-145) mmol/L Potassium (3.5-5.1) mmol/L Chloride (98-107) mmol/L Carbon Dioxide (21.0-32.0) mmol/L BUN (7.0-18.0) mg/dL Creatinine (0.6-1.0) mg/dL Est Cr Clr Drug Dosing mL/min Estimated GFR (MDRD) ml/min Glucose (74-106) mg/dL Calcium (8.5-10.1) mg/dL Total Bilirubin (0.2-1.0) mg/dL AST (15-37) IU/L ALT (14-63) IU/L Alkaline Phosphatase (46-116) U/L Total Protein (6.4-8.2) g/dL Albumin (3.4-5.0) g/dL Globulin (2.6-4.0) g/dL Albumin/Globulin Ratio (0.9-1.6) HCG, Quant mIU/mL Urine Color YELLOW Urine Appearance SLT CLOUDY Urine pH 6.0 (5.0-8.0) Ur Specific [place] 1.020 (1.001-1.035) Urine Protein NEGATIVE (NEGATIVE) mg/dL Urine Glucose (UA) NEGATIVE (NEGATIVE) mg/dL Urine Ketones NEGATIVE (NEGATIVE) mg/dL Urine Occult Blood NEGATIVE (NEGATIVE) Urine Nitrite POSITIVE H (NEGATIVE) Urine Bilirubin NEGATIVE (NEGATIVE) Urine Urobilinogen 0.2 (<2.0) EU/dL Ur Leukocyte Esterase MODERATE H (NEGATIVE) Urine RBC 0-2 (0-2/HPF) Urine WBC 4-8 (0-5/HPF) Ur Epithelial Cells FEW (NONE-FEW) Urine Bacteria 3+ H (NEGATIVE) Urine HCG, Qual POSITIVE (NEGATIVE) 08/30/20 08/30/20 Range/Units 18:11 18:11 WBC (4.0-11.0) K/uL RBC (4.30-5.90) M/uL Hgb (12.0-16.0) g/dL Hct (36.0-46.0) % MCV (80.0-98.0) fL MCH (27.0-32.0) pg MCHC (31.0-37.0) g/dL RDW Std Deviation (28.0-62.0) fl RDW Coeff of Danielle (11.0-15.0) % Plt Count (150-400) K/uL MPV (7.40-12.00) fL Neut % (Auto) (48.0-80.0) % Lymph % (Auto) (16.0-40.0) % [place] % (Auto) (0.0-15.0) % Eos % (Auto) (0.0-7.0) % Baso % (Auto) (0.0-1.5) % Neut # (Auto) (1.4-5.7) K/uL Lymph # (Auto) (0.6-2.4) K/uL [place] # (Auto) (0.0-0.8) K/uL Eos # (Auto) (0.0-0.7) K/uL Baso # (Auto) (0.0-0.1) K/uL Nucleated RBC % /100WBC Nucleated RBCs # K/uL Sodium 138 (136-145) mmol/L Potassium 4.0 (3.5-5.1) mmol/L Chloride 104 (98-107) mmol/L Carbon Dioxide 24.4 (21.0-32.0) mmol/L BUN 11 (7.0-18.0) mg/dL Creatinine 0.8 (0.6-1.0) mg/dL Est Cr Clr Drug Dosing 106.56 mL/min Estimated GFR (MDRD) > 60.0 ml/min Glucose 111 H (74-106) mg/dL Calcium 8.8 (8.5-10.1) mg/dL Total Bilirubin 0.2 (0.2-1.0) mg/dL AST 18 (15-37) IU/L ALT 25 (14-63) IU/L Alkaline Phosphatase 56 (46-116) U/L Total Protein 7.6 (6.4-8.2) g/dL Albumin 3.4 (3.4-5.0) g/dL Globulin 4.2 H (2.6-4.0) g/dL Albumin/Globulin Ratio 0.8 L (0.9-1.6) HCG, Quant 32264.0 mIU/mL Urine Color Urine Appearance Urine pH (5.0-8.0) Ur Specific [place] (1.001-1.035) Urine Protein (NEGATIVE) mg/dL Urine Glucose (UA) (NEGATIVE) mg/dL Urine Ketones (NEGATIVE) mg/dL Urine Occult Blood (NEGATIVE) Urine Nitrite (NEGATIVE) Urine Bilirubin (NEGATIVE) Urine Urobilinogen (<2.0) EU/dL Ur Leukocyte Esterase (NEGATIVE) Urine RBC (0-2/HPF) Urine WBC (0-5/HPF) Ur Epithelial Cells (NONE-FEW) Urine Bacteria (NEGATIVE) Urine HCG, Qual (NEGATIVE) Meds: Medications Discontinued Medications Generic Name Dose Route Start Last Admin Trade Name Freq PRN Reason Stop Dose Admin Amoxicillin/Clavulanate Potassium 1 tab 08/30/20 18:17 08/30/20 20:03 Augmentin 500 Mg\125 Mg PO 08/30/20 18:18 1 tab ONETIME ONE Administration Departure - Departure Time of Disposition: 19:40 Disposition: Home, Self-Care 01 Clinical Impression: UTI in Qualifiers: Trimester: first trimester Qualified Code(s): O23.41 - Unspecified infection of urinary tract in , first trimester - Discharge Information Prescriptions: Amoxicillin/Potassium Clav [Amox-Clav 500-125 mg Tablet] 1 each PO BID 7 Days #14 tablet Instructions: Urinary Tract Infection, Adult, [id number] Referrals: Jose Crabtree MD [Primary Care Provider] - Forms: ED Department Discharge Additional Instructions: The following information is given to patients seen in the emergency department who are being discharged to home. This information is to outline your options for follow-up care. We provide all patients seen in our emergency department with a follow-up referral. The need for follow-up, as well as the timing and circumstances, are variable depending upon the specifics of your emergency department visit. If you don't have a primary care physician on staff, we will provide you with a referral. We always advise you to contact your personal physician following an emergency department visit to inform them of the circumstance of the visit and for follow-up with them and/or the need for any referrals to a consulting specialist. The emergency department will also refer you to a specialist when appropriate. This referral assures that you have the opportunity for follow-up care with a specialist. All of these measure are taken in an effort to provide you with optimal care, which includes your follow-up. Under all circumstances we always encourage you to contact your private physician who remains a resource for coordinating your care. When calling for follow-up care, please make the office aware that this follow-up is from your recent emergency room visit. If for any reason you are refused follow-up, please contact the [facility] Emergency Department at and asked to speak to the emergency department charge nurse. [facility] [address] [place] [id number] [address] [address] Thank you for choosing the [facility] emergency department in [place] for your medical needs today. It was a pleasure caring for you. Today you were seen in the emergency department for mental pain in . 1. Please start and/or continue to take your vitamin with folic acid once daily. 2. Pelvic rest until cleared by your OBGYN (no tampons, sex, etc...) 3. Tylenol as needed for pain management. 4. Follow up with your PROCESS DEVELOPMENT ASSOCIATE in the next 1-2 days. Return to the ED as needed and as discussed. Sepsis Event Note (ED) - Focused Exam Vital Signs: Vital Signs Temp Pulse Resp BP Pulse Ox 08/30/20 20:04 98.5 F 84 18 129/79 98 08/30/20 17:52 98.3 F 96 18 165/83 H 98 - My Orders Last 24 Hours: My Active Orders 08/30/20 17:25 CULTURE URINE [RM] Stat - Assessment/Plan Last 24 Hours: My Active Orders 08/30/20 17:25 CULTURE URINE [RM] Stat
[2020-08-30] MEDS ORDERED: Amoxicillin/Clavulanate K 500-125 MG Tab PO ONE (18:17)
[2020-08-30 18:39] LABS: BLOOD UREA NITROGEN,BUN 11 mg/dL (7.0-18.0); CARBON DIOXIDE,CO2 24.4 mmol/L (21.0-32.0); CHLORIDE,CL 104 mmol/L (98-107); GLUCOSE RANDOM 111 mg/dL (74-106); SODIUM,NA 138 mmol/L (136-145)
--- NOTE | 2020-08-30 19:36 | US ---
INDICATION: . Left lower quadrant pain for 3 days. Five week 6 day gestation by last menstrual period. FINDINGS: There is a single intrauterine with a mean gestational sac diameter of 1.4 cm consistent with a 6 week 1 day gestation. Yolk sac is present. Very early pole without definite cardiac activity. Both maternal ovaries appear normal. No adnexal mass. Trace free fluid in the left from the left ovary. IMPRESSION: 1. Single intrauterine . Measurements are consistent with dates. 2. Trace free fluid adjacent to the left ovary, possibly due to recently ruptured cyst. Dictated by Corey Goncalves MD @ Aug 30 2020 7:31PM Signed by Dr. Corey Goncalves @ Aug 30 2020 7:35PM
[2020-08-30 20:05] VITALS: BP 129/79; PULSE 84
== END 2020-08-30 20:09 | disposition home or self-care (01) ==
LOC: MW.ED 17:32
DX: O23.41 Unspecified infection of urinary tract in pregnancy, first trimester (principal); O10.911 Unspecified pre-existing hypertension complicating pregnancy, first trimester; O99.211 Obesity complicating pregnancy, first trimester; Z88.8 Allergy status to other drugs, medicaments and biological substances; Z3A.01 Less than 8 weeks gestation of pregnancy
CPT/HCPCS: 36415; 76817; 80053; 81001; 81025; 84702; 85025; 87086; 87088; 87186; 99284; A9270; 99283

== ENCOUNTER 2020-11-05 15:49 | Emergency (ER) | payer BC ==
[2020-11-05] MEDS ORDERED: Sodium Chloride 0.9% 1,000 ML IV ONE (16:08)
[2020-11-05] MEDS ORDERED: Ondansetron 4 MG/2 ML SDV IVPUSH ONE (16:13)
--- NOTE | 2020-11-05 16:13 | EDM.PDOC ---
ED HPI GENERAL MEDICAL PROBLEM - General Chief Complaint: Gastrointestinal Problem Stated Complaint: N/V Time Seen by Provider: 11/05/20 15:58 Source of Information: Reports: Patient History Limitations: Reports: No Limitations - History of Present Illness INITIAL COMMENTS - FREE TEXT/NARRATIVE: Patient is a 25-year-old female who presents today for nausea vomiting. Patient states she 16 weeks and in the morning whenever she tries to eat or drink anything whether be water or crackers she has vomiting. Patient's last ate some yesterday. Patient has some pain epigastric area but denies any lower abdominal pain. Patient has any cramping vaginal bleeding or discharge. Abdomen Pain Score (Numeric/FACES): 2 - Related Data Allergies Allergy/AdvReac Type Severity Reaction Status Date / Time promethazine HCl Allergy seizure Verified 11/05/20 16:07 [From Phenergan] like Home Meds: Home Meds Aspirin 81 mg PO DAILY 11/05/20 [History] Past Medical History HEENT History: Reports: Impaired Vision Cardiovascular History: Reports: Hypertension, Other (See Below) Respiratory History: Reports: None Gastrointestinal History: Reports: GERD Genitourinary History: Reports: None COMMISSIONING AGENT History: Reports: Other COMMISSIONING AGENT History: chemical pregnancies Musculoskeletal History: Reports: None Neurological History: Reports: None Psychiatric History: Reports: Anxiety, Depression Endocrine/Metabolic History: Reports: Obesity/BMI 30+ Hematologic History: Reports: None Immunologic History: Reports: None Oncologic (Cancer) History: Reports: None Dermatologic History: Reports: None - Infectious Disease History Infectious Disease History: Reports: None - Past Surgical History HEENT Surgical History: Reports: Adenoidectomy, Tonsillectomy Cardiovascular Surgical History: Reports: Cardiac Ablation Social & Family History - Family History Family Medical History: No Pertinent Family History HEENT: Reports: None Cardiac: Reports: Afib, Hypertension, Other (See Below) Other Cardiac Family History: heart disease OBGYN: Reports: Dysfunctional uterine bleeding, Neurological: Reports: CVA Endocrine/Metabolic: Reports: Diabetes, type II - Caffeine Use Caffeine Use: Reports: None ED ROS GENERAL - Review of Systems Review Of Systems: See Below Constitutional: Reports: No Symptoms HEENT: Reports: No Symptoms Respiratory: Reports: No Symptoms Cardiovascular: Reports: No Symptoms Endocrine: Reports: No Symptoms GI/Abdominal: Reports: Diarrhea, Vomiting : Reports: No Symptoms Musculoskeletal: Reports: No Symptoms Skin: Reports: No Symptoms Neurological: Reports: No Symptoms Psychiatric: Reports: No Symptoms Hematologic/Lymphatic: Reports: No Symptoms Immunologic: Reports: No Symptoms ED EXAM, GI/ABD - Physical Exam Exam: See Below Exam Limited By: No Limitations General Appearance: Alert, WD/WN, No Apparent Distress Respiratory/Chest: No Respiratory Distress, Lungs Clear Cardiovascular: Normal Peripheral Pulses, Regular Rate, Rhythm GI/Abdominal Exam: Normal Bowel Sounds, Soft, Non-Tender Neurological: Alert, Oriented, CN II-XII Intact, Normal Cognition, Normal Gait Course - Vital Signs Last Recorded V/S: Last Vital Signs Temp 97.8 F 11/05/20 16:07 Pulse 64 11/05/20 16:56 Resp 16 11/05/20 16:56 BP 136/65 11/05/20 16:56 Pulse Ox 97 11/05/20 16:56 - Orders/Labs/Meds Labs: Laboratory Tests 11/05/20 11/05/20 11/05/20 Range/Units 16:06 16:06 16:06 WBC 10.30 (4.0-11.0) K/uL RBC 4.20 L (4.30-5.90) M/uL Hgb 12.3 (12.0-16.0) g/dL Hct 35.6 L (36.0-46.0) % MCV 84.8 (80.0-98.0) fL MCH 29.3 (27.0-32.0) pg MCHC 34.6 (31.0-37.0) g/dL RDW Std Deviation 41.7 (28.0-62.0) fl RDW Coeff of Danielle 14 (11.0-15.0) % Plt Count 268 (150-400) K/uL MPV 9.40 (7.40-12.00) fL Neut % (Auto) 75.3 (48.0-80.0) % Lymph % (Auto) 18.3 (16.0-40.0) % [place] % (Auto) 5.3 (0.0-15.0) % Eos % (Auto) 1.0 (0.0-7.0) % Baso % (Auto) 0.1 (0.0-1.5) % Neut # (Auto) 7.8 H (1.4-5.7) K/uL Lymph # (Auto) 1.9 (0.6-2.4) K/uL [place] # (Auto) 0.6 (0.0-0.8) K/uL Eos # (Auto) 0.1 (0.0-0.7) K/uL Baso # (Auto) 0.0 (0.0-0.1) K/uL Nucleated RBC % 0.0 /100WBC Nucleated RBCs # 0 K/uL Sodium 137 (136-145) mmol/L Potassium 3.7 (3.5-5.1) mmol/L Chloride 102 (98-107) mmol/L Carbon Dioxide 23.4 (21.0-32.0) mmol/L BUN 8 (7.0-18.0) mg/dL Creatinine 0.6 (0.6-1.0) mg/dL Est Cr Clr Drug Dosing 142.07 mL/min Estimated GFR (MDRD) > 60.0 ml/min Glucose 82 (74-106) mg/dL Calcium 8.4 L (8.5-10.1) mg/dL Total Bilirubin 0.3 (0.2-1.0) mg/dL AST 15 (15-37) IU/L ALT 22 (14-63) IU/L Alkaline Phosphatase 57 (46-116) U/L Total Protein 7.7 (6.4-8.2) g/dL Albumin 3.1 L (3.4-5.0) g/dL Globulin 4.6 H (2.6-4.0) g/dL Albumin/Globulin Ratio 0.7 L (0.9-1.6) HCG, Quant 14957.0 mIU/mL Urine Color YELLOW Urine Appearance HAZY Urine pH 7.5 (5.0-8.0) Ur Specific [place] 1.020 (1.001-1.035) Urine Protein NEGATIVE (NEGATIVE) mg/dL Urine Glucose (UA) NEGATIVE (NEGATIVE) mg/dL Urine Ketones 15 H (NEGATIVE) mg/dL Urine Occult Blood NEGATIVE (NEGATIVE) Urine Nitrite NEGATIVE (NEGATIVE) Urine Bilirubin NEGATIVE (NEGATIVE) Urine Urobilinogen 0.2 (<2.0) EU/dL Ur Leukocyte Esterase SMALL H (NEGATIVE) Urine RBC 0-2 (0-2/HPF) Urine WBC 1-3 (0-5/HPF) Ur Epithelial Cells MODERATE (NONE-FEW) Urine Bacteria RARE (NEGATIVE) Meds: Medications Discontinued Medications Generic Name Dose Route Start Last Admin Trade Name Junito PRN Reason Stop Dose Admin Sodium Chloride 1,000 mls @ 999 mls/hr 11/05/20 16:08 11/05/20 16:18 Normal Saline IV 11/05/20 17:08 999 mls/hr .BOLUS ONE Administration Ondansetron HCl 4 mg 11/05/20 16:13 11/05/20 16:18 Ondansetron 4 Mg/2 Ml Sdv IVPUSH 11/05/20 16:14 4 mg ONETIME ONE Administration - Re-Assessments/Exams Free Text/Narrative Re-Assessment/Exam: 11/05/20 17:20 Patient is tolerating p.o. and feels a lot better after IV fluids. Patient will be discharged home she has appointment tomorrow with [facility] doctor. Patient reassessed vitamin B6 at home for nausea patient will continue with meds. Departure - Departure Time of Disposition: 17:21 Disposition: Home, Self-Care 01 Condition: Good Clinical Impression: Hyperemesis arising during - Discharge Information *PRESCRIPTION DRUG MONITORING PROGRAM REVIEWED*: Not Applicable *COPY OF PRESCRIPTION DRUG MONITORING REPORT IN PATIENT ROBERTA: Not Applicable Instructions: Hyperemesis Gravidarum Referrals: Mariela Bui MD [Primary Care Provider] - Forms: ED Department Discharge Additional Instructions: The following information is given to patients seen in the emergency department who are being discharged to home. This information is to outline your options for follow-up care. We provide all patients seen in our emergency department with a follow-up referral. The need for follow-up, as well as the timing and circumstances, are variable depending upon the specifics of your emergency department visit. If you don't have a primary care physician on staff, we will provide you with a referral. We always advise you to contact your personal physician following an emergency department visit to inform them of the circumstance of the visit and for follow-up with them and/or the need for any referrals to a consulting specialist. The emergency department will also refer you to a specialist when appropriate. This referral assures that you have the opportunity for follow-up care with a specialist. All of these measure are taken in an effort to provide you with optimal care, which includes your follow-up. Under all circumstances we always encourage you to contact your private physician who remains a resource for coordinating your care. When calling for follow-up care, please make the office aware that this follow-up is from your recent emergency room visit. If for any reason you are refused follow-up, please contact the [facility] Emergency Department at and asked to speak to the emergency department charge nurse. Please follow up with your primary care physician. If you do not have a primary care physician, see below: [facility] [address] [place] [id number] [facility] [address] [place] [id number] You were seen today for nausea and vomiting while being . This is likely to your . We will give you Zofran to control the nausea. Recommend to continue taking her vitamin B6 at home. If you have any difficulty tolerating any food or water by mouth please return to the ED. If you have any other concerning signs or symptoms please follow-up or call your [facility] doctor. Sepsis Event Note (ED) - Evaluation Sepsis Screening Result: No Definite Risk - Focused Exam Vital Signs: Vital Signs Temp Pulse Resp BP Pulse Ox 11/05/20 16:56 64 16 136/65 97 11/05/20 16:07 97.8 F 89 16 150/96 H 99 - Assessment/Plan Plan: Patient is a 25-year-old female who presents today for nausea vomiting. Patient has no abdominal tenderness on exam. We will give IV fluids Zofran and reassess patient.
[2020-11-05 17:07] LABS: BLOOD UREA NITROGEN,BUN 8 mg/dL (7.0-18.0); CARBON DIOXIDE,CO2 23.4 mmol/L (21.0-32.0); CHLORIDE,CL 102 mmol/L (98-107); GLUCOSE RANDOM 82 mg/dL (74-106); POTASSIUM,K 3.7 mmol/L (3.5-5.1); SODIUM,NA 137 mmol/L (136-145)
[2020-11-05 17:28] VITALS: BP 128/67; PULSE 77
== END 2020-11-05 17:30 | disposition home or self-care (01) ==
LOC: MW.ED 15:49
DX: O21.9 Vomiting of pregnancy, unspecified (principal); O99.891 Other specified diseases and conditions complicating pregnancy; R10.13 Epigastric pain; O10.912 Unspecified pre-existing hypertension complicating pregnancy, second trimester; O99.212 Obesity complicating pregnancy, second trimester; E66.9 Obesity, unspecified; Z88.8 Allergy status to other drugs, medicaments and biological substances; Z79.82 Long term (current) use of aspirin; Z3A.16 16 weeks gestation of pregnancy
CPT/HCPCS: 80053; 81001; 84702; 85025; 96374; 99284; J2405; J7030

== ENCOUNTER 2020-11-26 13:23 | Emergency (ER) | payer BC ==
[2020-11-26] MEDS ORDERED: Sodium Chloride 0.9% 2.5 ML Syringe FLUSH PRN (13:58)
[2020-11-26] MEDS ORDERED: Ondansetron 4 MG/2 ML SDV IVPUSH ONE (13:58)
[2020-11-26] MEDS ORDERED: Sodium Chloride 0.9% 10 ML Syringe FLUSH PRN (13:58)
[2020-11-26] MEDS ORDERED: Sodium Chloride 0.9% 1,000 ML IV ONE (13:59)
--- NOTE | 2020-11-26 14:00 | EDM.PDOC ---
ED HPI GENERAL MEDICAL PROBLEM - General Chief Complaint: Gastrointestinal Problem Stated Complaint: CANT KEEP ANYTHING DOWN Time Seen by Provider: 11/26/20 13:26 - History of Present Illness INITIAL COMMENTS - FREE TEXT/NARRATIVE: History of present illness: [] The patient's vomiting for 24 hours. She cannot keep anything down. She has mild epigastric pain. It happened to her once before during this . She responded well to Zofran and fluids and was okay for a couple of weeks. Based on the August ultrasound and calculation on the dates she is 18 weeks and 5 days at this point. She is a G2, P1 Ab0 Review of systems: As per history of present illness and below otherwise all systems reviewed and negative. Past medical history: As per history of present illness and as reviewed below otherwise non contributory. Surgical history: As per history of present illness and as reviewed below otherwise noncontributory. Social history: No reported history of drug or alcohol abuse. Family history: As per history of present illness and as reviewed below otherwise noncontributory. Physical exam: Constitutional - well developed, well-nourished and in no acute distress HEENT - normocephalic, no evidence of trauma - external nose and mouth normal - no mass in neck and no JVD - mucosae moist EYES - full EOM, PERRL, no icterus - no evidence of inflammation, injection, or drainage Respiratory - no respiratory distress, equal bilateral expansion, lungs clear to auscultation and no abnormal lung sounds Cardiovascular - Regular Rhythm with S1 and S2 appreciated and no murmur, gallop or rub. GI - abdomen soft without distension or organomegaly - normal bowel sounds - no guard or rebound Musculoskeletal no gross deformity of long bones or joints - no tenderness, swelling or edema Neurologic - Alert and oriented times four - CN II-XII grossly intact - motor sensory and coordination symmetrically normal Psychiatric - appropriate mood and affect with normal thought content Hematologic - No petechiae or purpura - mucosa appropriate color and sclera not pale - normal nail bed color and refill Integument - no rash or evidence of trauma - normal turgor Diagnostics: [] Therapeutics: [] Impression: [] Plan: [] Definitive disposition and diagnosis as appropriate pending reevaluation and review of above. - Related Data Allergies Allergy/AdvReac Type Severity Reaction Status Date / Time promethazine HCl Allergy seizure Verified 11/26/20 13:53 [From Phenergan] like Home Meds: Home Meds Aspirin 81 mg PO DAILY 11/26/20 [History] Ondansetron [Zofran ODT] 4 mg PO Q6H PRN #14 tab.dis 11/26/20 [Rx] Comb No.42/Folic Acid [Prena1 Chew Tablet] 1 tab PO DAILY 11/26/20 [History] Past Medical History - Past Health History Medical/Surgical History: Denies Medical/Surgical History HEENT History: Reports: Impaired Vision Cardiovascular History: Reports: Hypertension Respiratory History: Reports: None Gastrointestinal History: Reports: GERD Genitourinary History: Reports: None CLUB DIRECTOR History: Reports: Other CLUB DIRECTOR History: chemical pregnancies Musculoskeletal History: Reports: None Neurological History: Reports: None Psychiatric History: Reports: Anxiety, Depression Endocrine/Metabolic History: Reports: Obesity/BMI 30+ Hematologic History: Reports: None Immunologic History: Reports: None Oncologic (Cancer) History: Reports: None Dermatologic History: Reports: None - Infectious Disease History Infectious Disease History: Reports: None - Past Surgical History HEENT Surgical History: Reports: Adenoidectomy, Tonsillectomy Cardiovascular Surgical History: Reports: Cardiac Ablation Social & Family History - Family History Family Medical History: No Pertinent Family History HEENT: Reports: None Cardiac: Reports: Afib, Hypertension, Other (See Below) Other Cardiac Family History: heart disease OBGYN: Reports: Dysfunctional uterine bleeding, Neurological: Reports: CVA Endocrine/Metabolic: Reports: Diabetes, type II - Caffeine Use Caffeine Use: Reports: None ED ROS GENERAL - Review of Systems Review Of Systems: Comprehensive ROS is negative, except as noted in HPI. ED EXAM, GENERAL - Physical Exam Exam: See Below Free Text/Narrative:: My physical exam is in the HPI Course - Vital Signs Text/Narrative:: 1556 hours - patient felt better was able to take p.o. Discharged in satisfactory condition. Last Recorded V/S: Last Vital Signs Temp 36.4 C 11/26/20 13:55 Pulse 74 11/26/20 16:14 Resp 16 11/26/20 16:14 BP 124/72 11/26/20 16:14 Pulse Ox 100 11/26/20 16:14 - Orders/Labs/Meds Labs: Laboratory Tests 11/26/20 11/26/20 11/26/20 Range/Units 14:33 14:33 15:28 WBC 8.64 (4.0-11.0) K/uL RBC 4.34 (4.30-5.90) M/uL Hgb 12.6 (12.0-16.0) g/dL Hct 37.2 (36.0-46.0) % MCV 85.7 (80.0-98.0) fL MCH 29.0 (27.0-32.0) pg MCHC 33.9 (31.0-37.0) g/dL RDW Std Deviation 41.9 (28.0-62.0) fl RDW Coeff of Danielle 13 (11.0-15.0) % Plt Count 263 (150-400) K/uL MPV 9.50 (7.40-12.00) fL Neut % (Auto) 78.8 (48.0-80.0) % Lymph % (Auto) 14.2 L (16.0-40.0) % [place] % (Auto) 5.6 (0.0-15.0) % Eos % (Auto) 1.3 (0.0-7.0) % Baso % (Auto) 0.1 (0.0-1.5) % Neut # (Auto) 6.8 H (1.4-5.7) K/uL Lymph # (Auto) 1.2 (0.6-2.4) K/uL [place] # (Auto) 0.5 (0.0-0.8) K/uL Eos # (Auto) 0.1 (0.0-0.7) K/uL Baso # (Auto) 0.0 (0.0-0.1) K/uL Nucleated RBC % 0.0 /100WBC Nucleated RBCs # 0 K/uL Sodium 137 (136-145) mmol/L Potassium 3.9 (3.5-5.1) mmol/L Chloride 104 (98-107) mmol/L Carbon Dioxide 23.0 (21.0-32.0) mmol/L BUN 7 (7.0-18.0) mg/dL Creatinine 0.6 (0.6-1.0) mg/dL Est Cr Clr Drug Dosing 136.96 mL/min Estimated GFR (MDRD) > 60.0 ml/min Glucose 78 (74-106) mg/dL Calcium 8.4 L (8.5-10.1) mg/dL Total Bilirubin 0.3 (0.2-1.0) mg/dL AST 24 (15-37) IU/L ALT 25 (14-63) IU/L Alkaline Phosphatase 54 (46-116) U/L Total Protein 7.7 (6.4-8.2) g/dL Albumin 3.0 L (3.4-5.0) g/dL Globulin 4.7 H (2.6-4.0) g/dL Albumin/Globulin Ratio 0.6 L (0.9-1.6) Lipase 74 (73-393) U/L Urine Color YELLOW Urine Appearance HAZY Urine pH 6.5 (5.0-8.0) Ur Specific [place] 1.015 (1.001-1.035) Urine Protein NEGATIVE (NEGATIVE) mg/dL Urine Glucose (UA) NEGATIVE (NEGATIVE) mg/dL Urine Ketones 40 H (NEGATIVE) mg/dL Urine Occult Blood TRACE-INTACT H (NEGATIVE) Urine Nitrite NEGATIVE (NEGATIVE) Urine Bilirubin NEGATIVE (NEGATIVE) Urine Urobilinogen 0.2 (<2.0) EU/dL Ur Leukocyte Esterase NEGATIVE (NEGATIVE) Urine RBC 0-1 (0-2/HPF) Urine WBC 0-1 (0-5/HPF) Ur Epithelial Cells OCCASIONAL (NONE-FEW) Urine Bacteria FEW (NEGATIVE) Meds: Medications Discontinued Medications Generic Name Dose Route Start Last Admin Trade Name Freq PRN Reason Stop Dose Admin Sodium Chloride 1,000 mls @ 1,000 mls/hr 11/26/20 13:59 11/26/20 14:30 Normal Saline IV 11/26/20 14:58 1,000 mls/hr .Bolus ONE Administration Ondansetron HCl 4 mg 11/26/20 13:58 11/26/20 14:30 Ondansetron 4 Mg/2 Ml Sdv IVPUSH 11/26/20 13:59 4 mg ONETIME ONE Administration Sodium Chloride 10 ml 11/26/20 13:58 11/26/20 14:30 Sodium Chloride 0.9% 10 Ml Syringe FLUSH 10 ml ASDIRECTED PRN Administration Keep Vein Open Sodium Chloride 2.5 ml 11/26/20 13:58 06/02/21 14:30 Sodium Chloride 0.9% 2.5 Ml Syringe FLUSH 2.5 ml ASDIRECTED PRN Administration Keep Vein Open Departure - Departure Time of Disposition: 16:14 Disposition: Home, Self-Care 01 Condition: Good Clinical Impression: Hyperemesis gravidarum - Discharge Information Prescriptions: Ondansetron [Zofran ODT] 4 mg PO Q6H PRN #14 tab.dis PRN Reason: Nausea Instructions: Hyperemesis Gravidarum Referrals: Mariela Bui MD [Primary Care Provider] - Forms: ED Department Discharge Additional Instructions: Drink plenty of fluids. [facility] [address] [place] [id number] [facility] [address] [place] [address] The following information is given to patients seen in the emergency department who are being discharged to home. This information is to outline your options for follow-up care. We provide all patients seen in our emergency department with a follow-up referral. The need for follow-up, as well as the timing and circumstances, are variable depending upon the specifics of your emergency department visit. If you don't have a primary care physician on staff, we will provide you with a referral. We always advise you to contact your personal physician following an emergency department visit to inform them of the circumstance of the visit and for follow-up with them and/or the need for any referrals to a consulting specialist. The emergency department will also refer you to a specialist when appropriate. This referral assures that you have the opportunity for follow-up care with a specialist. All of these measure are taken in an effort to provide you with optimal care, which includes your follow-up. Under all circumstances we always encourage you to contact your private physician who remains a resource for coordinating your care. When calling for follow-up care, please make the office aware that this follow-up is from your recent emergency room visit. If for any reason you are refused follow-up, please contact the [facility] Emergency Department at and asked to speak to the emergency department charge nurse. Sepsis Event Note (ED) - Evaluation Sepsis Screening Result: No Definite Risk
[2020-11-26 15:13] LABS: BLOOD UREA NITROGEN,BUN 7 mg/dL (7.0-18.0); CHLORIDE,CL 104 mmol/L (98-107); GLUCOSE RANDOM 78 mg/dL (74-106); LIPASE 74 U/L (73-393); POTASSIUM,K 3.9 mmol/L (3.5-5.1); SODIUM,NA 137 mmol/L (136-145)
[2020-11-26 16:14] VITALS: BP 124/72; PULSE 74
== END 2020-11-26 16:14 | disposition home or self-care (01) ==
LOC: MW.ED 13:23
DX: O21.0 Mild hyperemesis gravidarum (principal); O13.2 Gestational [pregnancy-induced] hypertension without significant proteinuria, second trimester; O99.212 Obesity complicating pregnancy, second trimester; Z79.82 Long term (current) use of aspirin; Z88.8 Allergy status to other drugs, medicaments and biological substances; Z3A.18 18 weeks gestation of pregnancy
CPT/HCPCS: 36415; 80053; 81001; 83690; 85025; 96374; 99284; J2405; J7030

== ENCOUNTER 2021-04-27 02:05 | Inpatient (IN) | payer BC ==
[2021-04-27] MEDS ORDERED: Nalbuphine 10 MG/1 ML Vial IVPUSH PRN (02:32)
[2021-04-27] MEDS ORDERED: Sodium Chloride 0.9% 10 ML Syringe FLUSH PRN (02:32)
[2021-04-27] MEDS ORDERED: Sodium Chloride 0.9% 2.5 ML Syringe FLUSH PRN (02:32)
[2021-04-27] MEDS ORDERED: Water For Irrigation,Sterile 1,000 ML Container IRR PRN (02:32)
[2021-04-27] MEDS ORDERED: Misoprostol 200 MCG Tab PO PRN (02:32)
[2021-04-27] MEDS ORDERED: Methylergonovine 0.2 MG/1 ML Amp IM PRN ×2 (02:32→03:32)
[2021-04-27] MEDS ORDERED: Sodium Chloride 0.9% 10 ML SDV IV PRN (02:32)
[2021-04-27] MEDS ORDERED: Tranexamic Acid 1,000 MG in Sodium Chloride 0.9% 100 ML IV PRN ×2 (02:32→03:32)
[2021-04-27] MEDS ORDERED: Butorphanol 1 MG/ML SDV IVPUSH PRN (02:32)
[2021-04-27] MEDS ORDERED: Carboprost Tromethamine 250 MCG/1 ML Amp IM PRN ×2 (02:32→03:32)
[2021-04-27] MEDS ORDERED: Lidocaine 1% 50 ML MDV INJECT PRN (02:32)
[2021-04-27] MEDS ORDERED: Lactated Ringers 1,000 ML IV SCH (02:45)
[2021-04-27] MEDS ORDERED: Oxytocin/0.9 % Sodium Chloride 30 UNIT/500 ML BAG IV SCH (02:45)
[2021-04-27] MEDS ORDERED: Ibuprofen 400 MG Tab PO PRN (03:32)
[2021-04-27] MEDS ORDERED: Benzocaine/Menthol 20%-0.5% Spray 78 GM Cannister TOP PRN (03:32)
[2021-04-27] MEDS ORDERED: Lanolin 100% Cream 7 GM Tube TOP PRN (03:32)
[2021-04-27] MEDS ORDERED: oxyCODONE 5 MG Tab PO PRN (03:32)
[2021-04-27] MEDS ORDERED: Witch Hazel Medicated Pads 40/Jar TOP PRN (03:32)
[2021-04-27] MEDS ORDERED: Misoprostol 200 MCG Tab RECTAL PRN (03:32)
[2021-04-27] MEDS ORDERED: Acetaminophen 500 MG Tab PO PRN ×2 (03:32)
[2021-04-27] MEDS ORDERED: Bisacodyl 10 MG Supp RECTAL PRN (03:32)
[2021-04-27 03:59] LABS: BLOOD UREA NITROGEN,BUN 7 mg/dL (7.0-18.0); CARBON DIOXIDE,CO2 21.9 mmol/L (21.0-32.0); CHLORIDE,CL 99 mmol/L (98-107); GLUCOSE RANDOM 104 mg/dL (74-106); POTASSIUM,K 4.2 mmol/L (3.5-5.1); SODIUM,NA 134 mmol/L (136-145)
--- NOTE | 2021-04-27 05:05 | OR ---
SURGEON: Priyank Rogel MD DATE OF PROCEDURE: 04/27/2021 INDICATION FOR PROCEDURE: A 26-year-old G2, P 1-0-0-1 at 40 weeks and 5 days, presenting with active labor. The patient reports she had intermittent contractions starting yesterday, but became very strong and regular around midnight. She denies gush of fluids or bleeding. After arriving to Labor and Delivery, she was found to be 6 cm dilated with bulging membranes. tracing was category one. She is GBS negative. The patient's was complicated by chronic hypertension, which she has not required any medications. 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 She was also found to have a right ventricular echogenic focus on anatomy ultrasound with no other abnormalities. The patient's labor progressed quickly, she became fully dilated after about an hour and had spontaneous rupture of membranes with meconium. She then quickly had descent and had urge to push. PREOPERATIVE DIAGNOSES: 1. [place] intrauterine at 40 weeks and 5 days. 2. Active stage of labor. 3. Chronic hypertension. POSTOPERATIVE DIAGNOSES: 1. [place] intrauterine at 40 weeks and 5 days. 2. Active stage of labor. 3. Chronic hypertension. PROCEDURE PERFORMED: Normal spontaneous vaginal delivery. ANESTHESIA: None. FINDINGS: Viable female infant, scores of 8 and 9. weight of 4180 g. PROCEDURE IN DETAIL: The patient pushed with one contraction and the head delivered in the occiput anterior position, restituted ROT. The anterior shoulder delivered easily followed by posterior shoulder and the remaining body. No nuchal cord was noted. Baby was placed on maternal chest and evaluated by awaiting nursery staff. The baby was pink, crying, and moving all extremities immediately after delivery. Meconium-stained fluid was noted. The umbilical cord was clamped and cut after 3 minutes and no longer pulsating. Umbilical cord gases were obtained. The placenta was removed with gentle traction on the umbilical cord and fundal massage. It was examined to be intact with 3-vessel cord. The vagina and perineum were examined, and she had no lacerations. The fundus was firm and below the umbilicus, and the bleeding was light. The patient tolerated the procedure well, was given care instructions. SLICK / LAMBERT /[id number] FAISAL
[2021-04-27] MEDS: Ibuprofen 800 MG Tab PO PRN ×2 (05:46→14:42)
[2021-04-27] MEDS: Docusate Sodium 100 MG Cap PO PRN (20:17)
[2021-04-28] MEDS: Ibuprofen 800 MG Tab PO PRN ×2 (02:13→09:33)
--- NOTE | 2021-04-28 08:27 | PCM.PNPP ---
- General Info Date of Service: 04/28/21 Subjective Update: Patient doing well this morning, has no complaints. Functional Status: Reports: Pain Controlled, Tolerating Diet, Ambulating, Urinating - Review of Systems General: Reports: No Symptoms HEENT: Reports: No Symptoms Pulmonary: Reports: No Symptoms Cardiovascular: Reports: No Symptoms Gastrointestinal: Reports: No Symptoms Genitourinary: Reports: No Symptoms Musculoskeletal: Reports: No Symptoms Skin: Reports: No Symptoms Neurological: Reports: No Symptoms Psychiatric: Reports: No Symptoms - Patient Data Vital Signs - Most Recent: Last Vital Signs Temp 36.4 C 04/28/21 03:55 Pulse 76 04/28/21 03:55 Resp 16 04/28/21 03:55 BP 118/85 04/28/21 03:55 Pulse Ox 96 04/28/21 03:55 Weight - Most Recent: 140.614 kg Lab Results - Last 24 Hours: Laboratory Results - last 24 hr 04/28/21 Range/Units 06:05 Hgb 11.7 L (12.0-16.0) g/dL Hct 34.9 L (36.0-46.0) % Med Orders - Current: Current Medications Acetaminophen (Acetaminophen 500 Mg Tab) 500 mg PO Q4H PRN PRN Reason: Pain (mild 1-3) Acetaminophen (Acetaminophen 500 Mg Tab) 1,000 mg PO Q4H PRN PRN Reason: Pain (mild 1-3) Last Admin: 04/28/21 07:46 Dose: 1,000 mg Documented by: Benzocaine/Menthol (Benzocaine/Menthol 20%-0.5% [place] 78 Gm Cannister) 78 gm TOP ASDIRECTED PRN PRN Reason: Perineal Comfort Measure Last Admin: 04/27/21 14:41 Dose: 1 canister Documented by: Bisacodyl (Bisacodyl 10 Mg Supp) 10 mg RECTAL ONETIME PRN PRN Reason: Constipation Carboprost Tromethamine (Carboprost Tromethamine 250 Mcg/1 Ml Amp) 250 mcg IM ASDIRECTED PRN PRN Reason: Excessive vaginal bleeding Docusate Sodium (Docusate Sodium 100 Mg Cap) 100 mg PO Q12H PRN PRN Reason: Constipation Last Admin: 04/27/21 20:17 Dose: 100 mg Documented by: Emollient Ointment (Lanolin 100% Cream 7 Gm Tube) 0 gm TOP ASDIRECTED PRN PRN Reason: Sore Nipples Last Admin: 04/27/21 14:41 Dose: 1 tube Documented by: Tranexamic Acid 1,000 mg/ (Sodium Chloride) 110 mls @ 660 mls/hr IV ONETIME PRN PRN Reason: Bleeding Ibuprofen (Ibuprofen 400 Mg Tab) 400 mg PO Q4H PRN PRN Reason: Pain (mild 1-3) Ibuprofen (Ibuprofen 800 Mg Tab) 800 mg PO Q6H PRN PRN Reason: Cramping Last Admin: 04/28/21 02:13 Dose: 800 mg Documented by: Methylergonovine Maleate (Methylergonovine 0.2 Mg/1 Ml Amp) 0.2 mg IM ONETIME PRN PRN Reason: Excessive Vaginal Bleeding Misoprostol (Misoprostol 200 Mcg Tab) 1,000 mcg RECTAL ONETIME PRN PRN Reason: excessive vaginal bleeding Oxycodone HCl (Oxycodone 5 Mg Tab) 5 mg PO Q2H PRN PRN Reason: Pain (severe 7-10) Witch Hiral (Witch Hiral Medicated Pads 40/Jar) 1 pad TOP ASDIRECTED PRN PRN Reason: comfort care Last Admin: 04/27/21 14:41 Dose: 1 tub Documented by: Discontinued Medications Butorphanol Tartrate (Butorphanol 1 Mg/Ml Sdv) 1 mg IVPUSH Q1H PRN PRN Reason: Pain (severe 7-10) Carboprost Tromethamine (Carboprost Tromethamine 250 Mcg/1 Ml Amp) 250 mcg IM ASDIRECTED PRN PRN Reason: Post Hemorrhage Oxytocin/Sodium Chloride (Oxytocin 30 Unit In Ns 0.9% 500 Ml Premix) 30 unit in 500 mls @ 500 mls/hr IV TITRATE [facility] Last Admin: 04/27/21 03:12 Dose: 500 mls/hr Documented by: Tranexamic Acid 1,000 mg/ (Sodium Chloride) 110 mls @ 660 mls/hr IV ONETIME PRN PRN Reason: Bleeding Lactated Ringer's (Ringers, Lactated) 1,000 mls @ 150 mls/hr IV ASDIRECTED [facility] Last Admin: 04/27/21 02:30 Dose: 999 mls/hr Documented by: Lidocaine HCl (Lidocaine 1% 50 Ml Mdv) 50 ml INJECT ONETIME PRN PRN Reason: Laceration repair Methylergonovine Maleate (Methylergonovine 0.2 Mg/1 Ml Amp) 0.2 mg IM ASDIRECTED PRN PRN Reason: Post Hemorrhage Misoprostol (Misoprostol 200 Mcg Tab) 200 mcg PO ONETIME PRN PRN Reason: Post Hemorrhage Nalbuphine HCl (Nalbuphine 10 Mg/1 Ml Vial) 10 mg IVPUSH Q1H PRN PRN Reason: Pain (severe 7-10) Sodium Chloride (Sodium Chloride 0.9% 10 Ml Syringe) 10 ml FLUSH ASDIRECTED PRN PRN Reason: Keep Vein Open Sodium Chloride (Sodium Chloride 0.9% 2.5 Ml Syringe) 2.5 ml FLUSH ASDIRECTED PRN PRN Reason: Keep Vein Open Sodium Chloride (Sodium Chloride 0.9% 10 Ml Sdv) 10 ml IV ASDIRECTED PRN PRN Reason: IV Use Sterile Water (Water For Irrigation,Sterile 1,000 Ml Container) 1,000 ml IRR ASDIRECTED PRN PRN Reason: delivery - Infant Interaction Disposition, : [place] in Room with Family Infant Interaction: Holding Infant Feeding: Breastfed ; Nursed Well Support Person: - Recovery Exam Fundal Tone: Firm Fundal Level: At Umbilicus Fundal Placement: Midline Lochia Amount: Scant Lochia Color: Rubra/Red Bladder Status: Voiding Urinary Elimination: Voided - Exam General: Alert, Oriented Neck: Supple Lungs: Normal Respiratory Effort GI/Abdominal Exam: Soft, Non-Tender, No Distention Extremities: Non-Tender, No Pedal Edema Skin: Warm, Dry, Intact Neurological: No New Focal Deficit Psy/Mental Status: Alert, Normal Affect, Normal Mood - Problem List & Annotations (1) Vaginal delivery SNOMED Code(s): 230666235 Code(s): O80 - ENCOUNTER FOR FULL-TERM UNCOMPLICATED DELIVERY Status: Acute Current Visit: No - Problem List Review Problem List Initiated/Reviewed/Updated: Yes - My Orders Last 24 Hours: My Active Orders 04/28/21 08:25 Ready for Discharge [RC] PER UNIT ROUTINE - Assessment Assessment:: 26yo P2 s/p , PPD#1 - Plan Plan:: Patient desires discharge home today. Reviewed discharge instructions. Rh positive, GBS negative. All questions answered.
[2021-04-28 08:44] VITALS: BP 141/68; PULSE 74
[2021-04-28] MEDS: Docusate Sodium 100 MG Cap PO PRN (09:33)
== END 2021-04-28 11:03 | disposition home or self-care (01) | DRG 560 ==
LOC: MW.OBCHECK 02:05 → MW.OB 02:07 → MW.OBCHECK 02:32 → OBSVTOIN 03:11 → MW.OB 06:30
PROVIDERS: ADMIT Obstetrics & Gynecology; ATTEND Obstetrics & Gynecology
PROC: 10E0XZZ Delivery of Products of Conception, External Approach (ICD-10-PCS; principal; 2021-04-27)
DX: O48.0 Post-term pregnancy (principal); O10.92 Unspecified pre-existing hypertension complicating childbirth; Z37.0 Single live birth; O77.0 Labor and delivery complicated by meconium in amniotic fluid; Z20.822 Contact with and (suspected) exposure to COVID-19; Z3A.40 40 weeks gestation of pregnancy
CPT/HCPCS: 36415; 59025; 59409; 80053; 82570; 84156; 84550; 85014; 85018; 85027; 86592; 86850; 86900; 86901; A9270-GY; J2590; J7120; U0002

== ENCOUNTER 2024-06-24 19:49 | Emergency (ER) | payer OTHER ==
[2024-06-24] MEDS: Doxycycline 100 MG Cap PO ONE (22:17)
[2024-06-24 22:19] VITALS: BP 146/102; PULSE 74
== END 2024-06-24 22:17 | disposition home or self-care (01) ==
LOC: MW.ED 19:49
DX: J06.9 Acute upper respiratory infection, unspecified (principal); I10 Essential (primary) hypertension; E66.9 Obesity, unspecified; Z79.899 Other long term (current) drug therapy; Z88.8 Allergy status to other drugs, medicaments and biological substances; Z75.8 Other problems related to medical facilities and other health care
CPT/HCPCS: 71045; 87428; 93005; 99284; A9270

== ENCOUNTER 2025-05-16 17:34 | Emergency (ER) | payer OTHER ==
[2025-05-16] MEDS ORDERED: Sodium Chloride 0.9% 2.5 ML Syringe FLUSH PRN (18:16)
[2025-05-16] MEDS ORDERED: Sodium Chloride 0.9% 10 ML Syringe FLUSH PRN (18:16)
[2025-05-16 18:17] LABS: APPEARANCE,URINE HAZY; GLUCOSE,URINE NEGATIVE (NEGATIVE); OCCULT BLOOD,URINE MODERATE (NEGATIVE)
[2025-05-16 18:25] LABS: SQUAMOUS EPITHELIAL CELLS,UR MODERATE
[2025-05-16] MEDS: Ondansetron 4 MG/2 ML SDV IVPUSH ONE (19:02)
[2025-05-16 19:07] LABS: BASOPHILS ABSOLUTE AUTO 0.02 K/uL (0.00-0.20); BASOPHILS PERCENT AUTO 0.2 % (0.0-1.0); EOSINOPHILS ABSOLUTE AUTO 0.09 K/uL (0.00-0.45); EOSINOPHILS PERCENT AUTO 0.9 % (0.0-6.0); IMMATURE GRAN ABSOLUTE AUTO 0.02 K/uL (0.00-0.05); IMMATURE GRAN PERCENT AUTO 0.2 % (0.0-0.4); LYMPHOCYTES ABSOLUTE AUTO 1.47 K/uL (1.00-4.80); LYMPHOCYTES PERCENT AUTO 15.0 % (24.0-44.0); MEAN PLATELET VOLUME 8.9 fL (9.4-12.3); MONOCYTES ABSOLUTE AUTO 0.39 K/uL (0.00-0.80); MONOCYTES PERCENT AUTO 4.0 % (0.0-8.0); NEUTROPHILS ABSOLUTE AUTO 7.80 K/uL (1.80-7.70); NEUTROPHILS PERCENT AUTO 79.7 % (41.0-71.0); NRBC ABSOLUTE 0.00 K/uL (0.00-0.02); NRBC PERCENT 0.0 /100WBC (0.0-0.2); PLATELET COUNT,PLT 322 K/uL (150-400); RED BLOOD CELL COUNT 4.28 M/uL (4.10-5.30); WHITE BLOOD CELL COUNT,WBC 9.79 K/uL (3.9-11.3)
[2025-05-16 19:58] LABS: A/G RATIO 0.8 (0.9-1.6); ALANINE AMINOTRANSFERASE,ALT 24.0 IU/L (14-63); ASPARTATE AMNIOTRANSFERASE,AST 20.0 IU/L (15-37); BILIRUBIN TOTAL 0.4 mg/dL (0.2-1.0); BLOOD UREA NITROGEN,BUN 8.0 mg/dL (7.0-18.0); CARBON DIOXIDE,CO2 27.2 mmol/L (21.0-32.0); CHLORIDE,CL 103.0 mmol/L (98-107); CREATININE 0.8 mg/dL (0.6-1.0); EST CRCL DRUG DOSING (CG) 101.84 mL/min; ESTIMATED GFR 100.0 mL/min (>60); GLUCOSE RANDOM 100.0 mg/dL (74-106); POTASSIUM,K 4.2 mmol/L (3.5-5.1); PROTEIN TOTAL,TP 8.2 g/dL (6.4-8.2); SODIUM,NA 137.0 mmol/L (136-145)
[2025-05-16] MEDS: Alum Hydrox/Mag Hydrox/Simeth 15 ML, Lidocaine 2% 5 ML PO ONE (20:15)
[2025-05-16 23:41] VITALS: BP 142/68; PULSE 75
== END 2025-05-16 23:42 | disposition home or self-care (01) ==
LOC: MW.ED 17:34
DX: K52.9 Noninfective gastroenteritis and colitis, unspecified (principal); I10 Essential (primary) hypertension; Z88.8 Allergy status to other drugs, medicaments and biological substances; Z79.899 Other long term (current) drug therapy
CPT/HCPCS: 36415; 76705; 80053; 81001; 81025; 83690; 85025; 87428; 96361; 96374; 96375; 99284; A9270; J2405; J2765; J3490; J7030; 99283